=== PATIENT | male | born 1995 | race Two or more races ===

== ENCOUNTER → 2019-01-04 | Emergency (ER) | payer OTHER ==
[~2019-01-04] VITALS: Ht 172.7 cm; Wt 59.9 kg
[~2019-01-04] MED LIST: ORASEP SPRAY30 ML MM
== END | disposition home or self-care (01) ==
LOC: ER 22:14
DX: T17.298A Other foreign object in pharynx causing other injury, initial encounter (principal); W45.8XXA Other foreign body or object entering through skin, initial encounter; Y93.89 Activity, other specified; Y92.89 Other specified places as the place of occurrence of the external cause; Y99.8 Other external cause status